=== PATIENT | female | born 1995 | race African-American/Black ===

== ENCOUNTER 2018-07-08 18:42 | Emergency (ER) | payer MEDICAID ==
[~2018-07-08] VITALS: Ht 170.2 cm; Wt 65.0 kg
[2018-07-08] MEDS ORDERED: KETOROLAC 30MG/ML VIAL IM ONE (22:45)
[2018-07-09 01:46] VITALS: BP 100/62
== END 2018-07-09 01:46 | disposition home or self-care (01) ==
LOC: ER 18:42
DX: S93.401A Sprain of unspecified ligament of right ankle, initial encounter (principal); J30.2 Other seasonal allergic rhinitis; W50.2XXA Accidental twist by another person, initial encounter; Y93.01 Activity, walking, marching and hiking; Y92.89 Other specified places as the place of occurrence of the external cause; Y99.8 Other external cause status
CPT/HCPCS: 73610; 81025; 96372; 99284; J1885